=== PATIENT | male | born 1945 | race Caucasian/White ===

== ENCOUNTER → 2018-04-04 | Outpatient (CLI) | payer OTHER ==
[2016-03-05 10:16] VITALS: BP 138/83
[~2018-04-04] MED LIST: AMLODIPINE BESYL5 MG PO; ASPIRIN E.C. 8181 MG PO; CLOPIDOGREL PO; CRESTOR5 MG PO; LATANOPROST 2.2.5 ML OP; LISINOPRIL10 MG PO; PANTOPRAZOLE SO40 MG PO; SERTRALINE PO
[2018-04-05 07:47] LABS: T3 TOTAL 125 ng/dL (87-178)
== END ==
LOC: LAB 08:40
PROVIDERS: Internal Medicine
DX: E04.1 Nontoxic single thyroid nodule (principal)

== ENCOUNTER → 2018-04-17 | Outpatient (CLI) | payer MEDICARE, OTHER ==
[2016-03-05 10:16] VITALS: BP 138/83
== END ==
LOC: RAD 14:56
DX: E04.2 Nontoxic multinodular goiter (principal)